=== PATIENT | male | born 1995 | race Caucasian/White ===

== ENCOUNTER 2018-09-03 11:45 | Emergency (ER) | payer BC ==
--- NOTE | 2018-09-03 12:16 | ED ---
Abdominal Pain [facility] <Luke Mcfadden - Last Filed: 09/03/18 14:21> - General Source: patient Mode of arrival: ambulatory Limitations: no limitations <Vanessa Scott - Last Filed: 09/03/18 15:41> - General Chief Complaint: Abdominal Pain Stated Complaint: Abd Pain/[facility] Time Seen by Provider: 09/03/18 11:58 - History of Present Illness Initial Comments: Patient is a 22-year-old male who presents emergency Department with complaints of left lower quadrant abdominal/groin pain x this morning. Patient states he has a history of a left-sided inguinal hernia which he's had for about a year. Patient states he was golfing today with his father when he started having an intense pain in his left groin. Patient states there is a visible bulge in the left inguinal area. Patient states he was unable to reduce the hernia. Patient states his pain right now is about a 5 out of 10. Patient denies fever, chills, nausea, vomiting. No other complaints at this time. (Vanessa Scott) - Related Data Home Medications Medication Instructions Recorded Confirmed Loratadine [Claritin] 10 mg PO DAILY PRN 09/03/18 09/03/18 Allergies Allergy/AdvReac Type Severity Reaction Status Date / Time No Known Allergies Allergy Verified 09/03/18 12:37 Review of Systems ROS Other: All systems not noted in ROS Statement are negative. <Luke Mcfadden - Last Filed: 09/03/18 14:21> ROS Other: All systems not noted in ROS Statement are negative. <Vanessa Scott - Last Filed: 09/03/18 15:41> ROS Statement: Those systems with pertinent positive or pertinent negative responses have been documented in the HPI. Past Medical History Past Medical History: No Reported History History of Any Multi-Drug Resistant Organisms: None Reported Additional Past Surgical History / Comment(s): neck surgery Past Psychological History: No Psychological Hx Reported Smoking Status: Never smoker Past Alcohol Use History: Occasional Past Drug Use History: None Reported <Vanessa Scott - Last Filed: 09/03/18 15:41> General Exam Limitations: no limitations <Vanessa Scott - Last Filed: 09/03/18 15:41> - General Exam Comments Initial Comments: GENERAL: Well-appearing, well-nourished and in no acute distress. HEAD: Atraumatic, normocephalic. EYES: Pupils equal round and reactive to light, extraocular movements intact, sclera anicteric, conjunctiva are normal. NECK: Normal range of motion, supple without lymphadenopathy or JVD. LUNGS: Breath sounds clear to auscultation bilaterally and equal. No wheezes rales or rhonchi. HEART: Regular rate and rhythm without murmurs, rubs or gallops. ABDOMEN: Soft, normoactive bowel sounds. No guarding, no rebound. Mild tenderness on left lower quadrant, with increased pain in the left groin area . There is a large left inguinal hernia that is not reducible. : Deferred EXTREMITIES: Normal range of motion, no pitting or edema. No clubbing or cyanosis. NEUROLOGICAL: Cranial nerves II through XII grossly intact. Normal speech, normal gait. PSYCH: Normal mood, normal affect. SKIN: Warm, Dry, normal turgor, no rashes or lesions noted. (Vanessa Scott) Course Vital Signs 09/03/18 09/03/18 11:51 13:11 Temperature 98.3 F Pulse Rate 87 66 Respiratory 18 18 Rate Blood Pressure 127/92 131/77 O2 Sat by Pulse 99 98 Oximetry Medical Decision Making - Lab Data Result diagrams: 09/03/18 13:00 09/03/18 13:00 <Luke Mcfadden - Last Filed: 09/03/18 14:21> - Lab Data Result diagrams: 09/03/18 13:00 09/03/18 13:00 <Vanessa Scott - Last Filed: 09/03/18 15:41> - Medical Decision Making IDavidson, personally saw and examined the patient. I have reviewed and agree with the PA findings, including all diagnostic interpretations and treatment plans as written unless otherwise stated. I was present for the gordon portions of any procedures performed and the inclusive time noted for any c ritical care statement. I spoke with Dr. Aiken he agreed to come see the patient in the emergency department. (Luke Mcfadden) Patient is a 22-year-old male presented to the ER with complaints of a large left inguinal hernia that he was not able to reduce. Patient states he was playing golf this morning and the pain started. On exam patient has a large left inguinal hernia that was not reducible. CT the abdomen shows a large-sized widemouth left inguinal hernia containing peritoneal fat with fluid and inflammatory changes within the fat that also extends into the scrotal sac. Case was discussed with Dr. Mcfadden. Dr. Aiken was consulted and came to see the patient. They will schedule an outpatient procedure to have the hernia repaired. Patient was in agreement with this plan. Patient be discharged at this time. Return parameters were discussed. (Vanessa Scott) - Lab Data Lab Results 09/03/18 09/03/18 09/03/18 Range/Units 13:00 13:00 13:00 WBC 8.0 (3.8-10.6) k/uL RBC 4.97 (4.30-5.90) m/uL Hgb 14.8 (13.0-17.5) gm/dL Hct 43.2 (39.0-53.0) % MCV 86.9 (80.0-100.0) fL MCH 29.9 (25.0-35.0) pg MCHC 34.3 (31.0-37.0) g/dL RDW 13.7 (11.5-15.5) % Plt Count 222 (150-450) k/uL Neutrophils % 65 % Lymphocytes % 24 % Monocytes % 5 % Eosinophils % 4 % Basophils % 1 % Neutrophils # 5.2 (1.3-7.7) k/uL Lymphocytes # 2.0 (1.0-4.8) k/uL Monocytes # 0.4 (0-1.0) k/uL Eosinophils # 0.3 (0-0.7) k/uL Basophils # 0.1 (0-0.2) k/uL Sodium 140 (137-145) mmol/L Potassium 4.2 (3.5-5.1) mmol/L Chloride 106 (98-107) mmol/L Carbon Dioxide 24 (22-30) mmol/L Anion Gap 10 mmol/L BUN 14 (9-20) mg/dL Creatinine 0.73 (0.66-1.25) mg/dL Est GFR (CKD-EPI)AfAm >90 (>60 ml/min/1.73 sqM) Est GFR (CKD-EPI)NonAf >90 (>60 ml/min/1.73 sqM) Glucose 90 (74-99) mg/dL Plasma Lactic Acid Aren 1.1 (0.7-2.0) mmol/L Calcium 9.4 (8.4-10.2) mg/dL Total Bilirubin 1.7 H (0.2-1.3) mg/dL AST 23 (17-59) U/L ALT 23 (21-72) U/L Alkaline Phosphatase 60 (38-126) U/L Total Protein 7.0 (6.3-8.2) g/dL Albumin 4.5 (3.5-5.0) g/dL Disposition <Luke Mcfadden - Last Filed: 09/03/18 14:21> Is patient prescribed a controlled substance at d/c from ED?: No <Vanessa Scott - Last Filed: 09/03/18 15:41> Clinical Impression: Left inguinal hernia Disposition: HOME SELF-CARE Condition: Stable Additional Instructions: Please return to the Emergency Department if symptoms worsen or any other concer ns. Follow-up with Dr. Aiken as discussed. Referrals: None,Stated [REFERRING] - 1-2 days Carolyn Aiken DO [Doctor of Osteopathic Medicine] - 1-2 days
[2018-09-03] MEDS ORDERED: KETOROLAC 60 MG/2 ML VIAL IM STA (12:24)
[2018-09-03 13:28] LABS: ALT 23 U/L (21-72); AST 23 U/L (17-59); African American GFR (CKD) >90 (>60 ml/min/1.73 sqM); Albumin 4.5 g/dL (3.5-5.0); Alkaline Phosphatase 60 U/L (38-126); Anion Gap 10 mmol/L; Blood Urea Nitrogen 14 mg/dL (9-20); Calcium 9.4 mg/dL (8.4-10.2); Carbon Dioxide 24 mmol/L (22-30); Chloride 106 mmol/L (98-107); Glucose 90 mg/dL (74-99); Potassium 4.2 mmol/L (3.5-5.1); Sodium 140 mmol/L (137-145); Total Bilirubin 1.7 mg/dL (0.2-1.3)
[2018-09-03 13:41] LABS: Basophils # (A) 0.1 k/uL (0-0.2); Basophils % (A) 1 %; Eosinophils # (A) 0.3 k/uL (0-0.7); Eosinophils % (A) 4 %; HCT 43.2 % (39.0-53.0); HGB 14.8 gm/dL (13.0-17.5); Lymphocytes % (A) 24 %; MCH 29.9 pg (25.0-35.0); MCHC 34.3 g/dL (31.0-37.0); MCV 86.9 fL (80.0-100.0); Mean Platelet Volume 7.3; Monocytes # (A) 0.4 k/uL (0-1.0); Monocytes % (A) 5 %; Neutrophils # (A) 5.2 k/uL (1.3-7.7); Neutrophils % (A) 65 %; Platelet Count 222 k/uL (150-450); RBC 4.97 m/uL (4.30-5.90); RDW 13.7 % (11.5-15.5)
--- NOTE | 2018-09-03 13:51 | CT ---
EXAMINATION TYPE: CT abdomen pelvis w con DATE OF EXAM: 09/03/2018 COMPARISON: None HISTORY: Left lower quadrant pain CT DLP: 794 mGycm Automated exposure control for dose reduction was used. CONTRAST: CT scan of the abdomen pelvis is performed with IV Contrast, patient injected with 100 mL of Isovue 3 00. FINDINGS- LUNG BASES- No significant abnormality is appreciated. LIVER/GB- No gross abnormality is appreciated. PANCREAS- No gross abnormality is seen. SPLEEN- No gross abnormality is seen. ADRENALS- No gross abnormality is seen. KIDNEYS/BLADDER- no hydronephrosis nephrolithiasis or renal mass. BOWEL-bowel gas pattern nonspecific. Normal appendix. LYMPH NODES- No greater than 1cm abdominal or pelvic lymph nodes areappreciated. OSSEOUS STRUCTURES- No significant abnormality is seen. OTHER- there is a widemouth left inguinal hernia containing peritoneal fat fluid with some inflammat ory change within the flap. Related to stress-related fat-containing hernia. Aorta normal caliber. Fa t-containing small periumbilical hernia. 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 There is a fairly large sized wide mouth left inguinal hernia containing peritoneal fat. There is fluid and inflammatory change within the fat. This could represent a degree of strangulation of the fat-containing inguinal hernia. Note is made ex tends into the scrotal sac.
[2018-09-03] MEDS ORDERED: ONDANSETRON 4 MG/2 ML VIAL IVP STA (14:21)
[2018-09-03] MEDS ORDERED: MORPHINE SULFATE 4 MG/ML SYRINGE IVP STA (14:21)
--- NOTE | 2018-09-03 15:28 | P.GSCN ---
History of Present Illness Consult date: 09/03/18 History of present illness: 22-year-old male presented to the emergency department with complaints of left groin bulge and pain. He states that he has been dealing with a West inguinal hernia for over one year and states that it normally is in the left groin and left groin and self reduces. He states that he was golfing today and mated to 9 holes but began having a significant amount of pain in the left groin and noticed a larger bulge. Secondary to this, he did present to the emergency department. He denied any nausea or vomiting. He denies any change in bowel function. He denies any radiation of the pain. He denies any previous abdominal or inguinal hernia surgery. CT of the abdomen and pelvis was performed by the emergency department and the patient is noted to have peritoneal fat within the hernia and the hernia does not contain any bowel. Review of Systems All systems: negative Past Medical History Past Medical History: No Reported History History of Any Multi-Drug Resistant Organisms: None Reported Additional Past Surgical History / Comment(s): neck surgery Past Psychological History: No Psychological Hx Reported Smoking Status: Never smoker Past Alcohol Use History: Occasional Past Drug Use History: None Reported Medications and Allergies Home Medications Medication Instructions Recorded Confirmed Type Loratadine [Claritin] 10 mg PO DAILY PRN 09/03/18 09/03/18 History Allergies Allergy/AdvReac Type Severity Reaction Status Date / Time No Known Allergies Allergy Verified 09/03/18 12:37 Surgical - Exam Osteopathic Statement: *. No significant issues noted on an osteopathic structural exam other than those noted in the History and Physical/Consult. Vital Signs Temp Pulse Resp BP Pulse Ox 98.3 F 87 18 127/92 99 09/03/18 11:51 09/03/18 11:51 09/03/18 11:51 09/03/18 11:51 09/03/18 11:51 - General well nourished, no distress - ENT normal mucosa - Neck trachea midline - Respiratory No difficulty with respiration - Abdomen Soft, nontender, nondistended, no rebound, guarding, left inguinal hernia large in size and reducible, however the hernia contents do immediately bulge back out - Psychiatric oriented to time, oriented to person, oriented to place Results - Labs 09/03/18 13:00 09/03/18 13:00 Abnormal Lab Results - Last 24 Hours (Table) 09/03/18 Range/Units 13:00 Total Bilirubin 1.7 H (0.2-1.3) mg/dL Diabetes panel 09/03/18 Range/Units 13:00 Sodium 140 (137-145) mmol/L Potassium 4.2 (3.5-5.1) mmol/L Chloride 106 (98-107) mmol/L Carbon Dioxide 24 (22-30) mmol/L BUN 14 (9-20) mg/dL Creatinine 0.73 (0.66-1.25) mg/dL Glucose 90 (74-99) mg/dL Calcium 9.4 (8.4-10.2) mg/dL AST 23 (17-59) U/L ALT 23 (21-72) U/L Alkaline Phosphatase 60 (38-126) U/L Total Protein 7.0 (6.3-8.2) g/dL Albumin 4.5 (3.5-5.0) g/dL Calcium panel 09/03/18 Range/Units 13:00 Calcium 9.4 (8.4-10.2) mg/dL Albumin 4.5 (3.5-5.0) g/dL Pituitary panel 09/03/18 Range/Units 13:00 Sodium 140 (137-145) mmol/L Potassium 4.2 (3.5-5.1) mmol/L Chloride 106 (98-107) mmol/L Carbon Dioxide 24 (22-30) mmol/L BUN 14 (9-20) mg/dL Creatinine 0.73 (0.66-1.25) mg/dL Glucose 90 (74-99) mg/dL Calcium 9.4 (8.4-10.2) mg/dL Adrenal panel 09/03/18 Range/Units 13:00 Sodium 140 (137-145) mmol/L Potassium 4.2 (3.5-5.1) mmol/L Chloride 106 (98-107) mmol/L Carbon Dioxide 24 (22-30) mmol/L BUN 14 (9-20) mg/dL Creatinine 0.73 (0.66-1.25) mg/dL Glucose 90 (74-99) mg/dL Calcium 9.4 (8.4-10.2) mg/dL Total Bilirubin 1.7 H (0.2-1.3) mg/dL AST 23 (17-59) U/L ALT 23 (21-72) U/L Alkaline Phosphatase 60 (38-126) U/L Total Protein 7.0 (6.3-8.2) g/dL Albumin 4.5 (3.5-5.0) g/dL Assessment and Plan Plan: 22-year-old male with left inguinal hernia - Hernia is reducible at this time. I did discuss options with the patient including option of urgent repair in an open technique today or treating conservatively with pain medication and scheduled for an elective robotic procedure. The patient has opted for an elective robotic procedure and we will schedule this in the upcoming week.
[2018-09-03 15:55] VITALS: BP 123/66; PULSE 63; RESP 16; TEMP 98.1
== END 2018-09-03 15:55 | disposition home or self-care (01) ==
LOC: EC 11:45
DX: K40.90 Unilateral inguinal hernia, without obstruction or gangrene, not specified as recurrent (principal)
CPT/HCPCS: 36415; 80053; 83605; 85025; 74177; 99285; 96374; 96375; 96372; J2270; J2405; J1885; Q9967

== ENCOUNTER 2018-09-08 11:36 | Day surgery (SDC) | payer BC ==
[2018-09-06 14:52] VITALS: BMI 23.1
[~2018-09-08 11:36] MED LIST: DEXAMETHASONE SOD PHOSPHATE 10 MG/ML 1 ML VIAL IV ONE; HEPARIN SODIUM,PORCINE 5,000 UNIT/ML 1 ML VIAL SQ ONE; LACTATED RINGERS 1,000 ML IV SCH; LIDOCAINE 1% 20 ML VIAL (10MG/ML) FOR IV START INTRADERMA PRN; ONDANSETRON 4 MG/2 ML VIAL IVP ONE; ceFAZolin IN SWFI 2 GM/20 ML SYRINGE IVP ONE
[2018-09-08] MEDS ORDERED: MIDAZOLAM (PF) 2 MG/2 ML VIAL IVP ONE (12:25)
[2018-09-08] MEDS ORDERED: fentaNYL (PF) 50 MCG/ML 2 ML AMP IVP ONE (12:26)
--- NOTE | 2018-09-08 12:33 | P.ANPRN ---
Procedure Note - Anesthesia - Nerve Block Performed Left Transversus Abdominis Single Time Out Performed: Yes Date of Procedure: 09/08/18 Procedure Start Time: 12:24 Procedure Stop Time: :31 Location of Patient Procedure: PreOp Indication: Requested by physician Specifically requested for management of pain by DrKirstin: Carolyn Aiken Sedation Type: Sedate with meaningful contact maintained Preparation: Sterile Prep Position: Supine Needle Types: Pajunk Needle Gauge: 21 Technique: Ultrasound Injectate: 0.5% Ropivacaine (see comment for volume) (15 ml plus Dexamethason 4 mg) Blood Aspirated: No Pain Paresthesia on Injection Noted: No Resistance on Injection: Normal Events: Uneventful and Well Tolerated
[2018-09-08] MEDS ORDERED: ROPIVACAINE 5 MG/ML 30 ML VIAL ONE (13:16)
[2018-09-08] MEDS ORDERED: ROCURONIUM BROMIDE 10 MG/ML 10 ML VIAL IV ONE (13:16)
[2018-09-08] MEDS ORDERED: fentaNYL (PF) 50 MCG/ML 2 ML AMP ONE (13:16)
[2018-09-08] MEDS ORDERED: PROPOFOL 10 MG/ML 20 ML VIAL IV ONE (13:16)
[2018-09-08] MEDS ORDERED: NEOSTIGMINE 1 MG/ML 10 ML VIAL ONE (13:16)
[2018-09-08] MEDS ORDERED: MIDAZOLAM 2 MG/2 ML VIAL ONE (13:16)
[2018-09-08] MEDS ORDERED: HYDROmorphone (PF) 1 MG/ML ONE (13:16)
[2018-09-08] MEDS ORDERED: KETOROLAC 30 MG/ML 1 ML VIAL ONE (13:16)
[2018-09-08] MEDS ORDERED: DEXAMETHASONE SOD PHOSPHATE 4 MG/ML 1 ML VIAL ONE (13:16)
[2018-09-08] MEDS ORDERED: GLYCOPYRROLATE 0.2 MG/ML 2 ML VIAL ONE (13:16)
[2018-09-08] MEDS ORDERED: LIDOCAINE 1% INJ 10MG/ML (20 ML MDV) ONE (13:16)
[2018-09-08] MEDS ORDERED: BUPIVACAINE (PF) 0.25% 30 ML VIAL SQ ONE ×2 (13:45)
[2018-09-08] MEDS ORDERED: LACTATED RINGERS 1,000 ML IV ONE (14:25)
[2018-09-08] MEDS: HYDROmorphone 0.5 MG/0.5 ML SYRINGE IVP PRN ×4 (16:07→16:30)
--- NOTE | 2018-09-08 16:08 | P.OP ---
Date of Procedure: 09/08/18 Preoperative Diagnosis: Incarcerated Left inguinal hernia Postoperative Diagnosis: Incarcerated left inguinal hernia Procedure(s) Performed: Robotic left inguinal hernia repair with mesh Anesthesia: ELIZABETH Surgeon: Carolyn Aiken Pathology: none sent Condition: stable Disposition: same day Indications for Procedure: This is a 22-year-old male that presented to the emergency department initially secondary to left groin pain. He had a large bulge in his left groin and states that he has had a inguinal hernia on the left side for over a year. He states that while golfing, he began to have a large bulge that was not reducible. On exam in the emergency department, I was able to reduce the hernia, however it did recur. He was discharged from the ER with plan for elective hernia repair as the hernia did not appear to incorporate any bowel at that time. The patient was explained the risks, benefits and alternatives to the procedure and did provide consent prior to attending the operating suite. Operative Findings: Incarcerated left inguinal hernia with omentum and bowel Description of Procedure: The patient was brought into the operating suite and placed in supine position on the operating table. Sedation was provided by anesthesia. The patient underwent endotracheal intubation. Manual reduction of the hernia was then performed. The hernia was notably reduced completely at that time. The patient was then prepped and draped in regular sterile fashion. A super umbilical incision was made dissection was carried to the fascia the fascia was incised and a 12 mm trocar was placed. Pneumoperitoneum was established. 2 additional 5 mm trochars were then placed in the lateral portions of the abdomen 11 cm from the midline trocar site. Examination of the left inguinal hernia site did elicit a large left inguinal hernia with bowel and omentum. As the patient was placed in Trendelenburg position, the incarcerated contents were reduced. Cautery was used to dissect a peritoneal plane. Dissection was then carried to reduce the hernia sac from the spermatic cord. This was done taking care not to injure any spermatic cord structures. Due to the large size of the hernia, this was a timely process. The entire hernia sac was then reduced from the spermatic cord. An appropriate amount of space was dissected out for placement of the hernia mesh. The indirect inguinal hernia defect was noticeably large. Secondary to this the indirect defect was closed with a running oh the lock suture. The mesh was then placed into the abdomen and unrolled over the hernia site. The peritoneal layer was then closed with a running 20V lock suture. The entire abdomen was then examined with no obvious injury to bowel or bowel ischemia or any additional bleeding. The midline trocar was removed and the fascia was closed with 0 Vicryl suture under direct visualization using a Cesar-Asuncion device. Pneumoperitoneum was released. All skin incisions were closed with 4-0 suture. The patient was then awakened in the operating suite and taken to postanesthesia care unit in stable condition.
[2018-09-08 16:22] VITALS: TEMP 97.4
[2018-09-08 16:44] VITALS: RESP 18
[2018-09-08 16:59] VITALS: BP 108/59; PULSE 62
== END 2018-09-08 17:39 | disposition home or self-care (01) ==
LOC: OR 11:36
PROVIDERS: ATTEND Surgery
DX: K40.30 Unilateral inguinal hernia, with obstruction, without gangrene, not specified as recurrent (principal); Z79.1 Long term (current) use of non-steroidal anti-inflammatories (NSAID); Z79.899 Other long term (current) drug therapy
CPT/HCPCS: 49650; 64486; C1781; J2250 ×2; J1100 ×2; J2710; J2405; J2001; J3010; J1885; J1170 ×2; J2795; J2704; J0690; 64488